=== PATIENT | female | born 1960 | race Caucasian/White ===

== ENCOUNTER 2016-06-11 13:02 | Emergency (ER) | payer BC ==
[~2016-06-11 13:02] MED LIST: ALPHAGAN P0.1 % OPH; ASA5GR PO; HYDROCHLOROT25 MG PO; Iron PO; JANUMET1 TA1 PO; LEVOTHYROXIN75 MCG PO; LEXAPRO5 MG PO; LOP100 PO; LUMIGAN2.5 ML OPH; NORV5 PO; PRAND1 PO; ZESTRIL20 MG PO; ZOCOR40 PO
[2016-07-11] MEDS ORDERED: LIOR10 PO (10:16)
[2016-07-11] MEDS ORDERED: NORCO1 TA2 PO (10:20)
[2016-07-11] MEDS ORDERED: XALAT OPH (10:21)
[2016-07-11] MEDS ORDERED: TIMOLOL MAL0.5 % OPH (10:21)
== END 2016-06-11 13:57 | disposition home or self-care (01) ==
LOC: ER 13:02
DX: S40.011A Contusion of right shoulder, initial encounter (principal); S50.812A Abrasion of left forearm, initial encounter; I10 Essential (primary) hypertension; F32.9 Major depressive disorder, single episode, unspecified; F41.9 Anxiety disorder, unspecified; E11.9 Type 2 diabetes mellitus without complications; Z86.73 Personal history of transient ischemic attack (TIA), and cerebral infarction without residual deficits; Z88.0 Allergy status to penicillin; Z79.82 Long term (current) use of aspirin; Z79.84 Long term (current) use of oral hypoglycemic drugs; Z79.899 Other long term (current) drug therapy; V89.2XXA Person injured in unspecified motor-vehicle accident, traffic, initial encounter
CPT/HCPCS: 73030-RT; 90471; 90714; 99284

== ENCOUNTER 2016-07-18 04:55 | Inpatient (IN) | payer BC ==
[2016-07-11 14:37] LABS: HEMOGLOBIN 11.3 g/dL (12.0-16.0)
[2016-07-11 14:38] LABS: HEMATOCRIT 32.8 % (36.0-48.0)
[2016-07-11 14:50] LABS: BUN (BLOOD UREA NITROGEN) 24 MG/DL (6-23); CALCIUM, SERUM 9.4 MG/DL (8.5-10.4); CHLORIDE, SERUM 103 MMOL/L (96-112); CO2 (CARBON DIOXIDE) 24 MMOL/L (24-34); CREATININE 1.39 MG/DL (0.55-1.02); GFR AFRICAN AMERICAN 50 ML/MIN (>=60); GFR NON AFRICAN AMERICAN 43 ML/MIN (>=60); POTASSIUM, SERUM 4.4 MMOL/L (3.5-5.3); SODIUM, SERUM 139 MMOL/L (135-148)
[2016-07-11 14:51] LABS: GLUCOSE, SERUM 104 MG/DL (60-99)
--- NOTE | ~2016-07-18 | DS ---
Discharge Summary [facility] [address] [place]. [address] NAME: DIONY GONZALEZ : 64 STATUS : DIS IN PAT#: [id number] AGE: 56 ADM/REG DATE : 07/18/16 MR#: [id number] REPORT SERV DATE: 07/28/16 DICTATED BY: SANCHEZ JEROME DATE: 07/27/16 REPORT STATUS : Draft TRANSCRIBED BY: KAMRON DATE: 07/27/16 Data Collection from hospitalization DISCHARGE DIAGNOSES: 1. Right traumatic cuff tear with biceps subluxation with impingement. 2. Hypertension. 3. Dad-spgaxmw-lqisyfasp diabetes. 4. Depression. 5. Anemia. 6. History of cerebrovascular accident. CONSULTATIONS: None. PROCEDURES PERFORMED: Right subacromial decompression, rotator cuff repair, biceps tenodesis, extensive debridement on 07/18/2016. MEDICATIONS: Norvasc 5 mg daily, alogliptin 12.5 mg with breakfast and supper, Janumet one tablet with breakfast and supper, Colace 100 mg twice a day, Lovenox 30 mg subcutaneously every 12 hours, Lexapro 5 mg at 9:00 a.m., Pepcid 20 mg twice a day, ferrous sulfate 300 mg at bedtime, hydrochlorothiazide 25 mg at 9:00 a.m. as instructed, Xalatan one drop at bedtime, Synthroid 75 mcg before breakfast, Prinivil 20 mg twice a day, Lopressor 100 mg daily, Prandin 1 mg before meals, Naropin 400 mL as directed, Zocor 40 mg at bedtime, Timoptic one drop in the affected eye daily as instructed, Glucophage 1000 mg with breakfast and supper, aspirin 325 mg daily, Lioresal 10 mg twice a day, [place] 7.5/325 one tablet at bedtime, and timolol one drop daily. CONDITION AT DISCHARGE: Stable. DISPOSITION: The patient was discharged to [facility] on an 1800- calorie diabetic diet with activities as instructed. HOSPITAL COURSE: This is a 56-year-old female who has a history of chronic stroke on the left side. She is reliant on her right upper extremity. She suffered a fall with immediate increase in pain and loss of function. She had basically a functional full-thickness tear with biceps subluxation and instability of the biceps reuben. She wanted to proceed with operative intervention. Treatment options were discussed and it was elected to proceed with surgical intervention. She was admitted to the hospital at this time for further evaluation and treatment. Upon admission, she was taken to the operating room where she underwent the above-mentioned procedure. She tolerated this well, and there were no complications. On postop day #1, she was evaluated by Physical Therapy. Her lungs were clear. She had no edema. Over the next couple of days, she continued to progress. Discharge planning was performed. On 07/21/2016, she was up sitting in a bedside chair. TAMARA hose were in place. Discharge instructions were given. Due to her improved and stable condition, she was discharged to [facility] with the above-stated instructions. Information collected by: Ceci Wiley Discharge Summary [address] [address] NAME: DIONY GONZALEZ : 64 STATUS : DIS IN PAT#: [id number] AGE: 56 ADM/REG DATE : 07/18/16 MR#: [id number] REPORT SERV DATE: 07/28/16 DICTATED BY: SANCHEZ JEROME. DATE: 07/27/16 REPORT STATUS : Draft TRANSCRIBED BY: KAMRON DATE: 07/27/16 I submit the above information as my discharge summary. JASIEL/KAMRON Sanchez Jerome M.D. / [id number] CC: [facility]
--- NOTE | ~2016-07-18 | OP ---
Record Of Operation [facility] [address] [place]. [address] NAME: DIONY GONZALEZ : 64 STATUS : ADM IN [facility]#: [id number] AGE: 56 ADM/REG DATE : 07/18/16 MR#: [id number] REPORT SERV DATE: 07/18/16 DICTATED BY: SANCHEZ DEAN DATE: 07/18/16 REPORT STATUS : Draft TRANSCRIBED BY: MODL DATE: 07/18/16 DATE OF PROCEDURE: 07/18/2016 PREOPERATIVE DIAGNOSIS: Right traumatic cuff tear with biceps subluxation with impingement. POSTOPERATIVE DIAGNOSIS: Right traumatic cuff tear with biceps subluxation with impingement. PROCEDURE: Right subacromial decompression, rotator cuff repair, biceps tenodesis, extensive debridement. COMPLICATIONS: None. ANESTHESIA: General endotracheal with regional block per Anesthesia. INDICATIONS: This 56-year-old female has had a history of a chronic stroke on the left side. She is reliant on her right upper extremity. She suffered a fall with immediate increase in pain and loss of function. She had basically a functional full-thickness tear with biceps subluxation and instability of the biceps reuben. She wished to proceed with operative intervention after discussion up above. PROCEDURE IN DETAIL: The patient was induced in a supine position. She was taken to the beach-chair position with care to maintain cervical lordosis. A time-out protocol was enforced. Ancef was administered. Posterolateral portal was created for diagnostic arthroscopy, which revealed normal cartilaginous surfaces of the glenohumeral joint. Severe intra-articular tenosynovitis. There was a partial tear of the supraspinatus, the articular side of the infra was normal. There was disruption of the sling of the biceps with extreme extra-articular biceps tenosynovitis and a type 1 labral tear. The bursal side was barely intact, but this was essentially a full thickness intrasubstance tear of the anterior reuben of the supraspinatus. There was a type 3 acromion. Extensive debridement: A 5.5 cannula was localized with an outside-in spinal technique. We released the biceps, allowed it to retract. We debrided the undersurface of the supraspinatus. We debrided the labrum superiorly, posteriorly, and anteriorly. We removed the synovitis from the rotator interval, debriding it with a shaver. The extra-articular, we opened up the tear with a longitudinal rent and debrided the greater tuberosity down to a bleeding bony surface and fenestrated the bone to optimize bony healing. Subacromial decompression: The arthroscopic cannula was then removed from the posterior shoulder and redirected in the subacromial space. The metal trocar was inserted and the cannula was advanced out the anterior superior portal creating an outflow portal with outside in technique. A lateral portal was then created after spinal needle localization and a skin incision was made with an 11-blade. A large 5-5 shaver was then introduced into the joint from lateral and its tip was well visualized in the bursa. A bursectomy was performed going from lateral to medial allowing visualization of the rotator cuff and Record Of Operation [address] [address] NAME: DIONY GONZALEZ : 64 STATUS : ADM IN PAT#: [id number] AGE: 56 ADM/REG DATE : 07/18/16 MR#: [id number] REPORT SERV DATE: 07/18/16 DICTATED BY: SANCHEZ DEAN DATE: 07/18/16 REPORT STATUS : Draft TRANSCRIBED BY: KAMRON DATE: 07/18/16 undersurface of the acromion. Coagulation was achieved with a 90-degree electrothermal device and the undersurface of the CA ligament was recessed with the tissue ablator. Bur was then introduced laterally and acromioplasty was performed smoothing the acromion from a type I morphology. This was begun laterally and advanced medially. The AC joint was then checked for spurs and these were smoothed. The soft tissue decompression was carried out anteriorly, laterally and superiorly. The scope was then withdrawn and placed into the lateral portal and the cutting-block technique was used with the instrumentation from posterior to assure that a perfect acromioplasty had been performed. Decompression then underwent the final check by forward flexing the arm again to check for impingement. Rotator cuff repair: We used a single triple loaded anchor at the medial row passing with an Expresso. We then passed an inverted mattress stitch more lateral to that, tied the medial row, and then placed all those into a single SwiveLock laterally for a transosseous equivalent two anchor repair. Biceps tenodesis: We used two double loaded Q-FIX anchors in the biceps groove and passed into the left CleverHook through an anterior-inferior portal. The biceps tendon was then tied into position and stabilized with a knot pusher. The sutures were cut, and the extra remnant of the biceps was transected and removed. Satisfactory repair was achieved. The patient tolerated the procedure well and was taken to the PACU in stable condition. POSTOPERATIVE PLAN: Small cuff protocol, the plan is admission and to go to rehab for one to two weeks at [facility] secondary to her stroke on the contralateral side. KHALIF/KAMRON Sanchez Dean M.D. / [id number] CC: Sanchez Dean M.D.
[~2016-07-18 04:55] MED LIST changes: +LIOR10 PO; +NORCO1 TA2 PO; +TIMOLOL MAL0.5 % OPH; +XALAT OPH
[2016-07-19 08:21] LABS: HEMATOCRIT 30.3 % (36.0-48.0); HEMOGLOBIN 10.4 g/dL (12.0-16.0)
[2016-07-19 08:36] LABS: CALCIUM, SERUM 8.9 MG/DL (8.5-10.4); CHLORIDE, SERUM 111 MMOL/L (96-112); CO2 (CARBON DIOXIDE) 20 MMOL/L (24-34); CREATININE 1.19 MG/DL (0.55-1.02); GFR AFRICAN AMERICAN 60 ML/MIN (>=60); GFR NON AFRICAN AMERICAN 52 ML/MIN (>=60); POTASSIUM, SERUM 4.8 MMOL/L (3.5-5.3); SODIUM, SERUM 143 MMOL/L (135-148)
[2016-07-19 08:37] LABS: BUN (BLOOD UREA NITROGEN) 16 MG/DL (6-23); GLUCOSE, SERUM 168 MG/DL (60-99)
[2016-07-21 04:30] LABS: BASOPHILS 0.2 %; BASOPHILS ABSOLUTE 0.01 10/3/uL (0.0-0.16); EOSINOPHILS 4.9 %; EOSINOPHILS ABSOLUTE 0.24 10/3/uL (0.0-0.53); HEMATOCRIT 28.3 % (36.0-48.0); IMMATURE GRANULOCYTES 0.2 %; IMMATURE GRANULOCYTES ABSOLUTE 0.01 10/3/uL (0.0-0.11); LYMPHOCYTES 34.8 %; LYMPHOCYTES ABSOLUTE 1.69 10/3/uL (0.67-4.30); MANUAL DIFF NO %; MEAN CORPUS HGB CONC 35.3 g/dL (32.0-36.0); MEAN CORPUSCULAR HEMOGLOB 29.8 pg (26.0-34.0); MEAN CORPUSCULAR VOLUME 84.2 fL (80-100); MEAN PLATELET VOLUME 8.9 fL (9.2-13.0); MONOCYTES 8.7 %; MONOCYTES ABSOLUTE 0.42 10/3/uL (0.21-1.20); NEUTROPHILS 51.2 %; NEUTROPHILS ABSOLUTE 2.48 10/3/uL (2.02-8.40); PLATELET COUNT 206 10/3/uL (150-400); RBC DISTRIBUTION WIDTH 12.5 % (12.0-16.0); RED CELL COUNT 3.36 10/6/uL (4.0-5.6); WHITE BLOOD CELLS 4.9 10/3/uL (4.5-10.5)
[2016-07-21 04:40] LABS: BUN (BLOOD UREA NITROGEN) 15 MG/DL (6-23); CALCIUM, SERUM 8.8 MG/DL (8.5-10.4); CHLORIDE, SERUM 105 MMOL/L (96-112); CREATININE 1.24 MG/DL (0.55-1.02); GFR AFRICAN AMERICAN 57 ML/MIN (>=60); GFR NON AFRICAN AMERICAN 49 ML/MIN (>=60); SODIUM, SERUM 140 MMOL/L (135-148)
[2016-07-21 04:41] LABS: CO2 (CARBON DIOXIDE) 26 MMOL/L (24-34); GLUCOSE, SERUM 104 MG/DL (60-99)
== END 2016-07-21 18:08 | DRG 502 ==
LOC: SDC/OF 04:55 → PACU 10:16 → 3SO 11:09
PROVIDERS: Nurse Practitioner; Orthopaedic Surgery Sports Medicine
PROC: 0LQ10ZZ Repair Right Shoulder Tendon, Open Approach (ICD-10-PCS; 2016-07-18)
PROC: 0RNJ0ZZ Release Right Shoulder Joint, Open Approach (ICD-10-PCS; principal; 2016-07-18 07:00)
PROC: 0LS30ZZ Reposition Right Upper Arm Tendon, Open Approach (ICD-10-PCS; 2016-07-18 07:00)
DX: S46.011A Strain of muscle(s) and tendon(s) of the rotator cuff of right shoulder, initial encounter (principal); I10 Essential (primary) hypertension; E11.9 Type 2 diabetes mellitus without complications; E03.9 Hypothyroidism, unspecified; E78.5 Hyperlipidemia, unspecified; F32.9 Major depressive disorder, single episode, unspecified
CPT/HCPCS: 73030-RT; 80048; 82962; 84703; 85014; 85018; 85025; 93005; 97110-GP; 97116-GP; 97161-GP; A9270-GY; C1713; J0690; J2250; J2270; J2405; J2710; J2795; J3010